=== PATIENT | female | born 1965 | race Caucasian/White ===

== ENCOUNTER 2016-05-30 19:16 | Emergency (ER) | payer MEDICAID ==
[~2016-05-30] VITALS: Ht 152.4 cm; Wt 86.5 kg
[~2016-05-30 19:16] MED LIST: CIPR500T4 PO; HYDR-902 PO; IBUP-1542 PO
[2016-05-30 19:19] VITALS: Ht 152.4 cm; Wt 86.5 kg
[2016-05-30] MEDS ORDERED: KETOROLAC 30 MG INJ IM STA (20:19)
--- NOTE | 2016-05-30 20:25 | ERD ---
ER Documentation Chief Complaint Date/Time DATE: 05/30/16 TIME: 20:24 Chief Complaint left upper back pain x 3 days HPI 50-year-old female comes emergency room right upper back pain that started 3 days ago. She is right-hand dominant, she denies any trauma but she states it happened after cleaning. It is localized in the upper back, worse when she moves, describes as sharp. She denies any fevers, chills, chest pain, shortness of breath or cough. ROS All systems reviewed and are negative except as per history of present illness. Medications Home Meds Active Scripts Cyclobenzaprine Hcl* (Cyclobenzaprine Hcl*) 5 Mg Tablet, 5 MG PO Q8H Y for PAIN , #15 TAB Prov:SANDRA WELCH PA-C 05/30/16 Naproxen* (Naprosyn*) 500 Mg Tablet, 500 MG PO BID Y for PAIN AND/OR INFLAMMATION, #30 TAB Prov:SANDRA WELCH PA-C 05/30/16 Ciprofloxacin Hcl* (Ciprofloxacin Hcl*) 500 Mg Tablet, 500 MG PO BID for 7 Days , TAB Prov:ONDINA PADILLA 12/13/15 Hydrocodone/Acetaminophen ([place] 10-325 Tablet) 1 Each Tablet, 1 EACH PO Q6, # 12 TAB Prov:MERCEDES CLIFFORD MD 12/13/15 Ibuprofen* (Motrin*) 600 Mg Tab, 600 MG PO Q6, #30 TAB Prov:CARROLL PROCTOR PA-C 11/16/15 Allergies Allergies: Coded Allergies: No Known Allergy (Unverified , 12/13/15) PMhx/Soc History of Surgery: Yes (HERNIA, STONES, gallbladder removal) Anesthesia Reaction: No Hx Neurological Disorder: No Hx Respiratory Disorders: No Hx Psychiatric Problems: No Hx Miscellaneous Medical Probl: Yes (GASTRITIS) Hx Alcohol Use: No Hx Substance Use: No Hx Tobacco Use: No Smoking Status: Never smoker Physical Exam Vitals Vital Signs Date Time Temp Pulse Resp B/P Pulse Ox O2 Delivery O2 Flow Rate FiO2 05/30/16 19:19 98.2 67 20 138/79 99 Physical Exam General: Well-developed, well-nourished. The patient appears in no acute distress. HEENT: Head is normocephalic, atraumatic. No scleral icterus. Neck: Supple. Nontender. Lungs: Clear to auscultation. Normal air movement. Chest: Atraumatic, chest movement symmetrical, no rashes. Tenderness to palpation over the left upper back. Heart: Regular rate and rhythm. S1 and S2 are normal. No murmurs, gallops, or rubs. Abdomen: Soft, nontender, nondistended. Bowel sounds are normoactive. Extremities: No clubbing or cyanosis. Normal pulses. Moving extremities x 4. No weakness. Neurologic: Alert and oriented 3. No focal deficits. Skin: Normal turgor. No rash or lesions. Results 24 hrs Current Medications Medications (Trade) Dose Ordered Sig/Elsy Route PRN Reason Start Time Stop Time Status Last Admin Dose Admin Ketorolac Tromethamine (Toradol) 30 mg ONCE STAT IM 05/30/16 20:19 05/30/16 20:20 DC 05/30/16 20:37 Diazepam (Valium) 2.5 mg ONCE ONCE PO 05/30/16 20:30 05/30/16 20:31 DC 05/30/16 20:37 PROCEDURE: XR Chest. CLINICAL INDICATION: Back pain. TECHNIQUE: Single frontal view of the chest was obtained COMPARISON: None FINDINGS: The heart and mediastinum are within normal limits. Mild elevation of right hemidiaphragm. The lungs are clear. Hyperinflation of COPD in changes of centrolobular emphysema. There is no pleural effusion or pneumothorax. IMPRESSION: No acute disease. RPTAT: [facility] Physician Daisy Date Time Electronically viewed and signed by Physician Daisy on 05/30/2016 21:42 Procedures/MDM ED course: She was given Toradol 30 mg IM and Valium 2.5 mg p.o. MDM: 50-year-old female comes in with right upper back pain, consistent with a muscle spasm. She was given Toradol, Valium, and report significant improvement of pain. She does not have any respiratory distress, no signs of ACS, dissection , pneumonia. Departure Diagnosis: Primary Impression: Back pain Condition: Good SANDRA WELCH PA-C May 30, 2016 20:25
[2016-05-30] MEDS ORDERED: DIAZEPAM 5 MG TAB PO ONE (20:30)
--- NOTE | 2016-05-30 21:42 | RADRPT ---
PROCEDURE: XR Chest. CLINICAL INDICATION: Back pain. TECHNIQUE: Single frontal view of the chest was obtained COMPARISON: None FINDINGS: The heart and mediastinum are within normal limits. Mild elevation of right hemidiaphragm. The lungs are clear. Hyperinflation of COPD in changes of centrolobular emphysema. There is no pleural effusion or pneumothorax. IMPRESSION: No acute disease. RPTAT: [facility] Physician Daisy Date Time Electronically viewed and signed by Bobby Lomeli Physician on 05/30/2016 21:42 RS/
[2016-05-30] MEDS ORDERED: CYCL5TAB PO (22:13)
[2016-05-30] MEDS ORDERED: NAPR-260 PO (22:13)
== END 2016-05-30 22:25 | disposition home or self-care (01) ==
LOC: FTE 19:16
DX: M54.6 Pain in thoracic spine (principal)
CPT/HCPCS: 71010; 96372; J1885; Z7502; Z7610

== ENCOUNTER 2016-12-18 21:11 | Emergency (ER) | payer SELFPAY ==
[~2016-12-18 21:11] MED LIST changes: +CYCL5TAB PO; +NAPR-260 PO
== END 2016-12-18 22:41 | disposition left against medical advice (07) ==
LOC: E/R 21:11
DX: Z53.21 Procedure and treatment not carried out due to patient leaving prior to being seen by health care provider (principal)

== ENCOUNTER 2016-12-22 18:14 | Emergency (ER) | payer MEDICAID ==
[~2016-12-22] VITALS: Ht 162.6 cm; Wt 87.5 kg
[2016-12-22 18:44] VITALS: Ht 162.6 cm; Wt 87.5 kg
[2016-12-22 22:22] VITALS: TEMP 98.4
--- NOTE | 2016-12-22 22:43 | ERA ---
ER Documentation Chief Complaint Date/Time DATE: 12/22/16 TIME: 22:43 Chief Complaint RUQ abd pain x 4 days HPI . The patient is a 51-year-old female, presenting to the ER because of intermittent right upper quadrant abdominal pain for the last 4 days, she had similar symptoms previously. There is no aggravating or relieving factor. She denies fever, chills, neck pain, chest pain, dyspnea, diarrhea, constipation. She does not smoke nor drink Past medical history: History of hepatic cyst, history of ovarian cyst, hypertension Past surgical history: Ventral herniorrhaphy, hepatitic cyst surgery, cholecystectomy ROS All systems reviewed and are negative except as per history of present illness. Medications Home Meds Active Scripts Ibuprofen* (Motrin*) 600 Mg Tab, 600 MG PO Q6, #20 TAB Prov:KAREN LINTON MD 12/23/16 Reported Medications Cyanocobalamin* (Vitamin B12*) 500 Mcg Tab, 1000 MCG PO DAILY, TAB 12/22/16 Ascorbic Acid* (Ascorbic Acid*) 500 Mg/5 Ml Syrup, 500 MG PO DAILY, #150 ML 12/22/16 Ibuprofen* (Ibuprofen*) 800 Mg Tablet, 800 MG PO Q6H Y for PAIN, TAB 12/22/16 Discontinued Scripts Cyclobenzaprine Hcl* (Cyclobenzaprine Hcl*) 5 Mg Tablet, 5 MG PO Q8H Y for PAIN , #15 TAB Prov:SANDRA WELCH PA-C 05/30/16 Naproxen* (Naprosyn*) 500 Mg Tablet, 500 MG PO BID Y for PAIN AND/OR INFLAMMATION, #30 TAB Prov:SANDRA WELCH PA-C 05/30/16 Ciprofloxacin Hcl* (Ciprofloxacin Hcl*) 500 Mg Tablet, 500 MG PO BID for 7 Days , TAB Prov:ONDINA PADILLA 12/13/15 Hydrocodone/Acetaminophen ([place] 10-325 Tablet) 1 Each Tablet, 1 EACH PO Q6, # 12 TAB Prov:MERCEDES CLIFFORD MD 12/13/15 Ibuprofen* (Motrin*) 600 Mg Tab, 600 MG PO Q6, #30 TAB Prov:CARROLL PROCTOR PA-C 11/16/15 Allergies Allergies: Coded Allergies: No Known Allergy (Unverified , 12/22/16) PMhx/Soc History of Surgery: Yes (HERNIA, STONES, gallbladder removal) Anesthesia Reaction: No Hx Neurological Disorder: No Hx Respiratory Disorders: No Hx Psychiatric Problems: No Hx Miscellaneous Medical Probl: Yes (GASTRITIS) Hx Alcohol Use: No Hx Substance Use: No Hx Tobacco Use: No Physical Exam Vitals Vital Signs Date Time Temp Pulse Resp B/P Pulse Ox O2 Delivery O2 Flow Rate FiO2 12/22/16 22:22 98.4 69 20 149/75 98 Room Air 12/22/16 18:44 98.4 71 20 151/76 98 Physical Exam Const: No acute distress. Head: Atraumatic. Eyes: Normal Conjunctiva. ENT: Normal External Ears, Nose and Mouth. Neck: Full range of motion. No meningismus. Resp: Clear to auscultation bilaterally. Cardio: Regular rate and rhythm. Abd: Soft, non distended, normal bowel sounds, Mild right upper quadrant discomfort, no right lower quadrant, epigastric, CVA tenderness Skin: No petechiae or rashes. Back: No midline or flank tenderness. Ext: No cyanosis, or edema. Neur: Awake and alert. No focal deficit Psych: Normal Mood and Affect. Result Diagram: 12/22/16224412/22/162244 Results 24 hrs Laboratory Tests Test 12/22/16 22:45 12/22/16 23:06 White Blood Count 8.210^3/ul Red Blood Count 4.4410^6/ul Hemoglobin 13.3g/dl Hematocrit 39.0% Mean Corpuscular Volume 87.8fl Mean Corpuscular Hemoglobin 30.0pg Mean Corpuscular Hemoglobin Concent 34.1g/dl Red Cell Distribution Width 13.2% Platelet Count 68797^3/UL Mean Platelet Volume 10.4fl Neutrophils % 51.5% Lymphocytes % 39.2% Monocytes % 7.6% Eosinophils % 0.9% Basophils % 0.6% Nucleated Red Blood Cells % 0.0/100WBC Neutrophils # (Manual) 4.210^3/ul Lymphocytes # 3.210^3/ul Monocytes # 0.610^3/ul Eosinophils # 0.110^3/ul Basophils # 0.110^3/ul Nucleated Red Blood Cells # 0.010^3/ul Sodium Level 140mmol/L Potassium Level 4.1mmol/L Chloride Level 101mmol/L Carbon Dioxide Level 29mmol/L Anion Gap 14 Blood Urea Nitrogen 18mg/dl Creatinine 0.83mg/dl Glucose Level 91mg/dl Calcium Level 9.5mg/dl Total Bilirubin 0.2mg/dl Direct Bilirubin 0.00mg/dl Indirect Bilirubin 0.2mg/dl Aspartate Amino Transf (AST/SGOT) 30IU/L Alanine Aminotransferase (ALT/SGPT) 40IU/L Alkaline Phosphatase 161IU/L Total Protein 8.1g/dl Albumin 4.3g/dl Globulin 3.80g/dl Albumin/Globulin Ratio 1.13 Lipase 120U/L Bedside Urine pH (LAB) 5.5 Bedside Urine Protein (LAB) Negative Bedside Urine Glucose (UA) Negative Bedside Urine Ketones (LAB) Negative Bedside Urine Blood Negative Bedside Urine Nitrite (LAB) Negative Bedside Urine Leukocyte Esterase (L Negative Current Medications Medications (Trade) Dose Ordered Sig/Elsy Route PRN Reason Start Time Stop Time Status Last Admin Dose Admin Morphine Sulfate (morphine) 2 mg ONCE ONCE IV 12/22/16 23:30 12/22/16 23:31 DC 12/22/16 23:21 Ondansetron HCl (Zofran Inj) 4 mg ONCE STAT IV 12/22/16 23:11 12/22/16 23:13 DC 12/22/16 23:21 Procedures/[place] [id number] Radiology Main Line: [phone] DIAGNOSTIC IMAGING REPORT Patient: DEANA QUIGLEY : 1965 Age: 51 Sex: F MR #: [id number] DOS: 12/22/16 2311 Ordering MD: KAREN LINTON MD Location: E/R Room/Bed: PROCEDURE: CT ABDOMEN/PELVIS WITHOUT CONTRAST CLINICAL INDICATION: 51-year-old female with abdominal pain. TECHNIQUE: The study was performed utilizing a [employer] VCT 64-slice CT scanner. Direct axial sections were obtained through the abdomen and pelvis without the use of intravenous contrast material. Sagittal and coronal reformations were obtained. One or more of the following dose reduction techniques were utilized: automated exposure control, adjustment of the mA and/ or kV according to patient's size or use of iterative reconstruction technique. The images were reviewed on a PACS workstation. CTD/vol = 21.3 mGy; Total Exam DLP = 1250.9 mGy-cm. COMPARISON: CT abdomen/pelvis November 16, 2015. FINDINGS: The lung bases are unremarkable. There is no evidence for significant pleural effusion. The liver has an irregular lobular contour suggestive of cirrhosis. There are innumerable hypodense masses identified throughout the liver with the majority appear clearly cystic however there is a large ovoid mass within the right lobe of the liver on axial image 3-52 measuring 7.3 x 8.0 x 7.7 cm with increased density within it and is not clearly a simple cyst however is without significant interval change. No intrahepatic nor extrahepatic biliary ductal dilatation is seen. Surgical clips are seen within the gallbladder fossa from prior cholecystectomy. The pancreas is without areas of abnormal attenuation. The spleen is identified and has a normal size without abnormal density. The adrenal glands are unremarkable. The right kidney is without abnormal density, calculi or obstruction. There is a cyst within the lower pole of the left kidney measuring approximately 2.0 x 1.5 x 1.6 cm without significant change. There is a small punctate left upper pole 2 x 2 mm nonobstructing renal calculus. The urinary bladder contains urine. There is a small upper abdominal ventral hernia with an opening of approximately 9 x 2 mm containing fat which appears of increased slightly in the interval. There is evidence for prior umbilical hernia surgery without evidence for recurrent hernia. There is retained stool identified throughout the colon without gross bowel obstruction. The appendix is visualized and is without abnormal thickening or surrounding inflammatory reaction. The uterus is unremarkable. There is an ovoid right adnexal mass again visualized measuring approximately 3.4 x 3.4 x 3.2 cm and fat, soft tissue and minimal peripheral calcification consistent with a dermoid. There is no significant pelvic free fluid. The aortoiliac vessels are without aneurysmal dilatation. Degenerative changes are seen within the spine. IMPRESSION: 1. Cirrhotic appearance to the liver with innumerable variable size cystic lesions. There is a dominant central right hepatic lesion measuring 7.3 x 8.0 x 7.7 cm which has increased density however it was present previously and is without significant change. This may represent a hemorrhagic cyst however an underlying tumor cannot be excluded. 2. Status post cholecystectomy. 3. Left lower pole renal cyst. 4. Left upper pole 2 mm punctate nonobstructing calculus. 5. Retained stool throughout the colon without gross bowel obstruction. 6. No CT evidence for appendicitis. 7. Minimal upper abdominal ventral hernia containing fat with slight interval increase in size. 8. Prior umbilical hernia repair without evidence for recurrent hernia. 9. Stable right ovarian dermoid. 10. Degenerative changes within the spine. .Gera Arizmendi MD, MD Date Time Electronically viewed and signed by .Gera Arizmendi MD, MD on 12/23/2016 00:32 .M/ CC: KAREN LINTON MD MEDICAL MAKING DECISION: The patient is a 51-year-old female, presenting with acute right upper quadrant abdominal pain of unclear etiology, most likely due to hepatic cysts and previous surgery. She was treated with morphine 2 mg IV for pain, Zofran 4 mg IV for nausea with good response The differential diagnoses considered include but are not limited to adhesion, cystitis, pancreatitis, hepatitis, gastritis, peptic ulcer disease, gastric ulcer, appendicitis, diverticulitis, cholangitis, choledocholithiasis, partial small bowel obstruction. Departure Diagnosis: Primary Impression: Abdominal pain Condition: Good Comments She was discharged with Motrin I discussed the findings with the patient. I advised the patient to follow-up with the primary physician in about 1-2 days, sooner if needed and return if any concern. KAREN LINTON MD Dec 22, 2016 22:43
[2016-12-22 22:59] LABS: URINE BLOOD (Dip) POC Negative (NEGATIVE)
[2016-12-22] MEDS ORDERED: IBUP800T25 PO (23:02)
[2016-12-22] MEDS ORDERED: CYAN500T46 PO (23:05)
[2016-12-22] MEDS ORDERED: ASCO500S2 PO (23:05)
[2016-12-22] MEDS ORDERED: ONDANSETRON 4 MG INJ IV STA (23:11)
[2016-12-22 23:21] LABS: BASOPHIL # 0.1 10^3/ul (0.0-0.1); BASOPHILS % 0.6 % (0.0-2.0); EOSINOPHILS # 0.1 10^3/ul (0.0-0.5); EOSINOPHILS % 0.9 % (0.0-7.0); HEMOGLOBIN 13.3 g/dl (12.0-16.0); LYMPHOCYTES # 3.2 10^3/ul (0.8-2.9); LYMPHOCYTES % 39.2 % (15.0-51.0); MEAN CORPUSCULAR HGB CONC 34.1 g/dl (32.0-37.0); MEAN CORPUSCULAR VOLUME 87.8 fl (82.0-101.0); MEAN PLATELET VOLUME 10.4 fl (7.4-10.4); MONOCYTE # 0.6 10^3/ul (0.3-0.9); MONOCYTES % 7.6 % (0.0-11.0); NEUTROPHILS % 51.5 % (39.0-77.0); PLATELET COUNT 215 10^3/UL (140-415); RED BLOOD COUNT 4.44 10^6/ul (4.20-5.40); RED CELL DISTRIBUTION WIDTH 13.2 % (11.5-14.5); WHITE BLOOD COUNT 8.2 10^3/ul (4.8-10.8)
[2016-12-22] MEDS ORDERED: morphine 2 MG INJ IV ONE (23:30)
[2016-12-22 23:36] LABS: ALBUMIN 4.3 g/dl (3.3-4.9); ALBUMIN/GLOBULIN RATIO 1.13; BILIRUBIN,INDIRECT 0.2 mg/dl (0-1.1); BILIRUBIN,TOTAL 0.2 mg/dl (0.2-1.3); CALCIUM 9.5 mg/dl (8.4-10.2); CREATININE 0.83 mg/dl (0.44-1.00); POTASSIUM 4.1 mmol/L (3.5-5.1); TOTAL PROTEIN 8.1 g/dl (6.1-8.1)
--- NOTE | 2016-12-23 00:32 | RADRPT ---
PROCEDURE: CT ABDOMEN/PELVIS WITHOUT CONTRAST CLINICAL INDICATION: 51-year-old female with abdominal pain. TECHNIQUE: The study was performed utilizing a [employer] VCT 64-slice CT scanner. Direct axia l sections were obtained through the abdomen and pelvis without the use of intravenous contrast mate rial. Sagittal and coronal reformations were obtained. One or more of the following dose reduction t echniques were utilized: automated exposure control, adjustment of the mA and/or kV according to pat ient's size or use of iterative reconstruction technique. The images were reviewed on a [employer]ACS [employer]. CTD/vol = 21.3 mGy; Total Exam DLP = 1250.9 mGy-cm. COMPARISON: CT abdomen/pelvis November 16, 2015. FINDINGS: The lung bases are unremarkable. There is no evidence for significant pleural effusion. The liver has an irregular lobular contour suggestive of cirrhosis. There are innumerable hypodense masses id entified throughout the liver with the majority appear clearly cystic however there is a large ovoid mass within the right lobe of the liver on axial image 3-52 measuring 7.3 x 8.0 x 7.7 cm with incre ased density within it and is not clearly a simple cyst however is without significant interval [place]. No intrahepatic nor extrahepatic biliary ductal dilatation is seen. Surgical clips are seen wit hin the gallbladder fossa from prior cholecystectomy. The pancreas is without areas of abnormal att enuation. The spleen is identified and has a normal size without abnormal density. The adrenal glan ds are unremarkable. The right kidney is without abnormal density, calculi or obstruction. There is a cyst within the lower pole of the left kidney measuring approximately 2.0 x 1.5 x 1.6 cm without significant change. There is a small punctate left upper pole 2 x 2 mm nonobstructing renal calculu s. The urinary bladder contains urine. There is a small upper abdominal ventral hernia with an openi ng of approximately 9 x 2 mm containing fat which appears of increased slightly in the interval. The re is evidence for prior umbilical hernia surgery without evidence for recurrent hernia. There is r etained stool identified throughout the colon without gross bowel obstruction. The appendix is visu alized and is without abnormal thickening or surrounding inflammatory reaction. The uterus is unrema rkable. There is an ovoid right adnexal mass again visualized measuring approximately 3.4 x 3.4 x 3 .2 cm and fat, soft tissue and minimal peripheral calcification consistent with a dermoid. There is no significant pelvic free fluid. The aortoiliac vessels are without aneurysmal dilatation. Degener ative changes are seen within the spine. IMPRESSION: 1. Cirrhotic appearance to the liver with innumerable variable size cystic lesions. There is a dom inant central right hepatic lesion measuring 7.3 x 8.0 x 7.7 cm which has increased density however it was present previously and is without significant change. This may represent a hemorrhagic cyst however an underlying tumor cannot be excluded. 2. Status post cholecystectomy. 3. Left lower pole renal cyst. 4. Left upper pole 2 mm punctate nonobstructing calculus. 5. Retained stool throughout the colon without gross bowel obstruction. 6. No CT evidence for appendicitis. 7. Minimal upper abdominal ventral hernia containing fat with slight interval increase in size. 8. Prior umbilical hernia repair without evidence for recurrent hernia. 9. Stable right ovarian dermoid. 10. Degenerative changes within the spine. .Gera Arizmendi MD, MD Date Time Electronically viewed and signed by .Gera Arizmendi MD, MD on 12/23/2016 00:32 .M/
[2016-12-23] MEDS ORDERED: IBUP-1542 PO (01:08)
[2016-12-23 01:25] VITALS: BP 123/80; PULSE 77; RESP 18
== END 2016-12-23 01:25 | disposition home or self-care (01) ==
LOC: E/R 18:14
DX: R10.11 Right upper quadrant pain (principal); I10 Essential (primary) hypertension; R11.0 Nausea
CPT/HCPCS: 36415; 74176; 80053; 81003; 83690; 85025; 96374; 96375; J2270; J2405; Z7502